=== PATIENT | female | born 1965 | race Caucasian/White ===

== ENCOUNTER 2022-08-26 07:29 | Day surgery (SDC) | payer OTHER ==
[~2022-08-26] VITALS: Ht 160 cm; Wt 110.7 kg
[2022-08-26] MEDS ORDERED: diphenhydrAMINE 50 MG/ML VIAL ONE (08:02)
[2022-08-26] MEDS ORDERED: MIDAZOLAM 5 MG/5 ML VIAL ONE (08:02)
[2022-08-26] MEDS ORDERED: fentaNYL citrate 0.05 MG/ML VIAL ONE (08:02)
[2022-08-26] MEDS ORDERED: LIDOCAINE 2% 100 MG/5 ML UJET TP ONE (08:03)
[2022-08-26] MEDS ORDERED: MIDAZOLAM 5 MG/5 ML VIAL IV ONE (08:55)
[2022-08-26] MEDS ORDERED: fentaNYL citrate 0.05 MG/ML VIAL IVP ONE (08:55)
== END 2022-08-26 09:30 | disposition home or self-care (01) ==
LOC: MDS 07:29 → MMU 07:30 → MDS 09:30
PROVIDERS: ATTEND Internal Medicine Gastroenterology
DX: K92.1 Melena (principal); K64.4 Residual hemorrhoidal skin tags; K64.8 Other hemorrhoids; E66.9 Obesity, unspecified; Z80.3 Family history of malignant neoplasm of breast; Z88.0 Allergy status to penicillin; Z68.41 Body mass index [BMI] 40.0-44.9, adult
CPT/HCPCS: 45378; J2250; J3010; J1200